=== PATIENT | female | born 1965 | race Caucasian/White ===

== ENCOUNTER → 2020-02-07 09:23 | Outpatient (BNVA) | payer MEDICAID, SELFPAY | PROVIDERS: PCP Internal Medicine; Referring Provider Internal Medicine; Visit Provider Nurse Practitioner | DX: Z76.89 Persons encountering health services in other specified circumstances (principal) ==

== ENCOUNTER 2021-05-06 11:17 | Outpatient (REF) | payer MEDICAID, SELFPAY ==
[2021-05-06 13:27] LABS: C Reactive Protein 0.18 mg/dL (< or = 0.50)
[2021-05-09 09:17] LABS: HCV Log PCR <1.18 NOT DETECTED Log IU/mL (NOT DETECTED); HepC Viral Load <15 NOT DETECTED IU/mL (NOT DETECTED)
== END 2021-05-06 11:18 | disposition home or self-care (01) ==
LOC: HO.LAB 11:17
PROVIDERS: PCP Internal Medicine; Visit Provider Nurse Practitioner
DX: K59.04 Chronic idiopathic constipation (principal); K21.9 Gastro-esophageal reflux disease without esophagitis; B19.20 Unspecified viral hepatitis C without hepatic coma; K30 Functional dyspepsia; Z83.79 Family history of other diseases of the digestive system
CPT/HCPCS: 36415; 86140; 87522; 99212

== ENCOUNTER 2021-05-24 12:20 | Outpatient (REF) | payer MEDICAID, SELFPAY | END 2021-05-24 12:21 | disposition home or self-care (01) | LOC: HO.MDS 12:20 | PROVIDERS: PCP Internal Medicine; Visit Provider Internal Medicine | DX: D50.9 Iron deficiency anemia, unspecified (principal) | CPT/HCPCS: 96365; J2916 ==

== ENCOUNTER → 2021-06-07 11:47 | Outpatient (BNVA) | payer MEDICAID, SELFPAY | PROVIDERS: PCP Internal Medicine; Referring Provider Internal Medicine; Visit Provider Nurse Practitioner | DX: K59.04 Chronic idiopathic constipation (principal); K21.9 Gastro-esophageal reflux disease without esophagitis; B19.20 Unspecified viral hepatitis C without hepatic coma; R19.7 Diarrhea, unspecified; K30 Functional dyspepsia; Z79.899 Other long term (current) drug therapy; Z83.79 Family history of other diseases of the digestive system | CPT/HCPCS: 83993; 87045; 87046; 99212 ==

== ENCOUNTER 2021-06-07 12:50 | Outpatient (REF) | payer MEDICAID, SELFPAY ==
[2021-06-12 18:06] LABS: Calprotectin, Fecal 171 mcg/g
== END 2021-06-07 12:51 | disposition home or self-care (01) ==
LOC: HO.LNP 12:50
PROVIDERS: Visit Provider Nurse Practitioner
DX: R19.7 Diarrhea, unspecified (principal); K30 Functional dyspepsia; B19.20 Unspecified viral hepatitis C without hepatic coma; K21.9 Gastro-esophageal reflux disease without esophagitis; Z83.79 Family history of other diseases of the digestive system
CPT/HCPCS: 83993; 87045; 87046

== ENCOUNTER 2023-06-22 15:22 | Outpatient (AMB) | payer MEDICAID, SELFPAY ==
--- NOTE | 2023-06-22 15:25 | A.OFFVIS_ITS ---
Vital Signs 06/22/23 15:28 Height 4 ft 11 in Weight 188 lb 11.451 oz BMI 38.1 BP 147/85 H Blood Pressure Location Lt brachial Position Sitting Pulse 118 H Intake Visit Reasons: Follow up GERD Intake Note: Patient here to f/u GERD. Last visit in June 2021. Requesting omeprazole refill. Stop taking Linzess. Patient c/o: nausea mostly in the morning. Requesting Zofran refill. Denies constipation, diarrhea. Mercury Cracking Tester Required: No Accompanied by: Self / Same As Patient Allergies morphine [MORPHINE] Allergy (Severe, Verified 06/22/23 15:27) STATES DIFFICULTY BREATHING acetaminophen [From VICODIN] Allergy (Unknown, Verified 06/22/23 15:27) HIVES aspirin [ASPIRIN] Allergy (Unknown, Verified 06/22/23 15:27) HIVES hydrocodone [Vicodin] Allergy (Unknown, Verified 06/22/23 15:27) hives penicillin G [PENICILLIN G] Allergy (Unknown, Verified 06/22/23 15:27) HIVES HPI HPI Follow up GERD: Details: Assessment & Plan (1) Acute diarrhea: Code(s): R19.7 - Diarrhea, unspecified Plan: This seems to have been largely iatrogenic caused by Linzess and excess magnesium dosing (2) GERD (gastroesophageal reflux disease): Comment: On Reglan for severe GERD never had the gastric emptying study requested for possible gastroparesis with her diabetes Code(s): K21.9 - Gastro-esophageal reflux disease without esophagitis Plan: She stopped the linzess 290 and the magnesium and her diarrhea has stopped. She is moving her bowels, but if she feels CIC she will take the diarrhea which is a good strategy - BUT we should consider getting a lower daily dosing of magnesium to keep her bowels regular. She was taking 400mg 2 tabs bid, then she started with 2 tabs at bedtime. We agree on 1 tablet or 1/2 tablet qhs. She continues on Reglan and she feels better at the 10mg qidhs dosing. still she will have some sulphur burps but not as much as before. No N/V. She still can not eat large amounts or her stomach will bloat and get hard, but I urger her to eat smaller, more frequent meals. We can compensate with medication but we can always completely offset the affects of gastroparesis. I inform her that the HEP C seems to be cured as the viral load is negative. With a non elevated CRP she likely dose not have IBD, but she just turned in her stool samples and kaitlin protectin will also help support this thought. She sill has some GERD but nothing Major and she continues her omeprazole. She also continues to try to modify diet and lifestyle triggers for this. Return office visit in 8 weeks and will go over any remaining labs and I as she reassure her that I really do not think she has inflammatory bowel disease despite her mother's diagnosis (3) Delayed gastric emptying: Code(s): K30 - Functional dyspepsia (4) Hepatitis C infection: Comment: Normal ABD US 2011. s/p tx 01/2019 1 year, genotype 1a, F2 HCV status post treatment with Epclusa and SVR Code(s): B19.20 - Unspecified viral hepatitis C without hepatic coma (5) Family history of Crohn's disease: Comment: Mother Code(s): Z83.79 - Family history of other diseases of the digestive system (6) Colon cancer screening: Comment: No showed multiple times, returnig her back to her PCP for this, no more procedures will be scheduled, Pt may benefit from finding a provider closer to her home in [place] for colon cancer screening Code(s): Z12.11 - Encounter for screening for malignant neoplasm of colon Medications: Refilled omeprazole 20 mg PO BID 60 caps 6RF K21.9 - Gastro-esophageal reflux disease without esophagitis Discontinued linaclotide (Linzess) Discontinued Reason: Doctor's Order 290 mcg PO QAM 30 caps 0RF TODAY'S VISIT Pt has been lost to follow up since 06/2021. She says her primary was refilling the meds for a time but then he stopped and insisted she come to see GI. We had not been refilling the medications because she was not showing up for her appointments. She no longer takes Linzess after her diarrhea, but she is movng her bowels well. She continues on Reglan 10 mg 4 times a day which she says is helping her stooling and her appetite. However she has nausea in the morning and is requesting Zofran. I am very reluctant to give her Zofran because this along with the trazodone and methadone because of the potential for Q R interval disruption and potential cardiac affects. I again educate Flakita about this and why I will not prescribe this medication. Instead I think will try giving her 110 mg Reglan 3 times a day and then to before bed to see if we can alleviate the morning nausea. She says her sister told her to take Dramamine to see if this helps and that is another strategy we could consider. She also needs a refill on her omeprazole which I provide. Return office visit in 6 weeks to evaluate her response. [facility] Medical History (Updated 06/07/21 @ 12:04 by NICKY Walls) Hypercholesterolemia Asthma COPD (chronic obstructive pulmonary disease) Hypertension Diabetes Surgical History (Updated 05/14/21 @ 11:43 by Shiloh Lazar MD) H/O melanoma excision Hx of tonsillectomy History of carpal tunnel release Hx of appendectomy H/O spinal fusion History of removal of ovarian cyst History of esophagogastroduodenoscopy Family History (Updated 02/07/20 @ 09:28 by HENRY Yost) Mother Crohn's disease Diverticulitis Father No problems noted. Sister Fibromyalgia Thyroid disease Brother Heart attack Social History (Updated 02/07/20 @ 09:29 by HENRY Yost) Alcohol intake: current Alcohol intake frequency: former alcohol drinker Years Smoked: 30 Review of Systems Const Denies fatigue, Denies fever(s), Denies night sweats, Denies poor appetite and Denies weight loss Eyes Details: glasses Reports requires corrective lenses ENT Reports Normal hearing present, Denies dental pain, Denies dysphagia, Denies hearing loss, Denies mouth pain, Denies odynophagia, Denies throat swelling, Denies tongue swelling and Reports other (Dentition adequate) Card Reports no additional complaints Resp Reports no additional complaints GI Details: Denies abdominal pain, Denies melena, Denies bloating, Denies hematochezia, Denies constipation, Denies GI cramping, Denies dysphagia, Denies excessive flatus, Denies early satiety, Reports heartburn, Denies diarrhea, Reports nausea, Denies odynophagia, Reports vomiting and Denies hematemesis Skin/Breast Denies pruritus, Denies lesions, Denies rash and Denies jaundice Neuro Reports Normal hearing present and Denies Abnormal speech present Endo Denies fatigue Aller/Immun Denies throat swelling and Denies tongue swelling Physical Exam Const Other: Strong odor of cigarette General: cooperative, no acute distress, well developed and well groomed Nutritional Appearance: well nourished and obese Orientation/consciousness: oriented to person, oriented to place and oriented to time Limitations: No language barrier HEENT Head: Yes normocephalic and Yes atraumatic Eyes General: appearance normal, both eyes and all related structures Pupils: Equal, round and reactive pupils present Neck Neck: Yes normal visual inspection and Yes no lymphadenopathy Thyroid: Thyroid normal Resp Effort & Inspection: normal respiratory effort and able to speak in complete sentences Auscultation: clear to auscultation bilaterally Cardio Rate: regular rate Rhythm: regular rhythm Heart sounds: Normal, physiologic split S2 sound present Peripheral pulses: radial pulses present and posterior tibial pulses present GI Inspection: No distended, Yes Abdominal panniculus present and Yes obesity Palpation (GI): Soft to palpation, nontender, no guarding, not rigid and No hepatosplenomegaly present Percussion: Yes normal to percussion Auscultation: normal bowel sounds Rectal Exam - Female: deferred Skin General skin exam: no rashes or lesions noted, turgor normal, skin not dry, no jaundice, No spider nevi and no striae Rashes: no rashes Nails: normal Neuro General: oriented to person, oriented to place and oriented to time Cranial nerves: Yes Equal, round and reactive pupils present and Yes Normal hearing present Speech: No Abnormal speech present Extrem General: Yes normal to inspection, No clubbing, No cyanosis and No edema Psych Appearance: grossly normal and well kempt Mental Status: mental status grossly normal Speech and movement: Normal speech and movement present Affect: normal affect Attitude: cooperative Thought process: Normal thought process present and not confabulating Thought content: Normal thought content present Insight: Poor insight present (Psych) Judgement: Poor judgement present (Psych) Assessment & Plan Assessment & Plan (1) Chronic idiopathic constipation: Code(s): K59.04 - Chronic idiopathic constipation Category: Medical (2) GERD (gastroesophageal reflux disease): Comment: On Reglan for severe GERD never had the gastric emptying study requested for possible gastroparesis with her diabetes Code(s): K21.9 - Gastro-esophageal reflux disease without esophagitis Category: Medical Plan Pt has been lost to follow up since 06/2021. She says her primary was refilling the meds for a time but then he stopped and insisted she come to see GI. We had not been refilling the medications because she was not showing up for her appointments. She no longer takes Linzess after her diarrhea, but she is movng her bowels well. She continues on Reglan 10 mg 4 times a day which she says is helping her stooling and her appetite. However she has nausea in the morning and is requesting Zofran. I am very reluctant to give her Zofran because this along with the trazodone and methadone because of the potential for Q R interval disruption and potential cardiac affects. I again educate Flakita about this and why I will not prescribe this medication. Instead I think will try giving her 110 mg Reglan 3 times a day and then to before bed to see if we can alleviate the morning nausea. She says her sister told her to take Dramamine to see if this helps and that is another strategy we could consider. She also needs a refill on her omeprazole which I provide. Return office visit in 6 weeks to evaluate her response. Medications: Changed From metoclopramide HCl 10 mg PO QID 120 tabs 2RF K30 - Functional dyspepsia To metoclopramide HCl 1 tab 3 times a day ac and 2 qhs orally 4 times a day; 150 tabs 3RF K30 - Functional dyspepsia Refilled omeprazole 20 mg PO BID 180 caps 1RF K21.9 - Gastro-esophageal reflux disease without esophagitis
[2023-06-22 15:28] VITALS: BP 147/85; PULSE 118; BMI 38.1
== END 2023-06-22 15:50 | disposition home or self-care (01) ==
PROVIDERS: PCP Internal Medicine; Visit Provider Nurse Practitioner
DX: K59.04 Chronic idiopathic constipation (principal); K21.9 Gastro-esophageal reflux disease without esophagitis
CPT/HCPCS: 99213

== ENCOUNTER → 2023-06-22 15:22 | Outpatient (BNVA) | payer MEDICAID, SELFPAY | PROVIDERS: PCP Internal Medicine; Visit Provider Nurse Practitioner | DX: K59.04 Chronic idiopathic constipation (principal); K21.9 Gastro-esophageal reflux disease without esophagitis; R19.7 Diarrhea, unspecified; K30 Functional dyspepsia; B19.20 Unspecified viral hepatitis C without hepatic coma; Z83.79 Family history of other diseases of the digestive system | CPT/HCPCS: 99212 ==